=== PATIENT | male | born 1995 | race American Indian/Alaskan Native ===

== ENCOUNTER 2021-11-20 10:51 | Emergency (ER) | payer SELFPAY ==
[2021-11-20 11:09] VITALS: BP 150/90
[2021-11-20] MEDS ORDERED: oxyCODONE /ACETAMINOPHEN 5-325MG TAB PO ONE (12:09)
[2021-11-20 13:51] LABS: BUN/Creatinine Ratio 10; Blood Urea Nitrogen 8 mg/dL (9-20); Calcium 9.3 mg/dL (8.4-10.2); Hemolysis Index 80
--- NOTE | 2021-11-20 13:54 | Emergency Department Report ---
ED Extremity Problem HPI - General Chief complaint: Extremity Injury, Lower Stated complaint: LT LEG PAIN Time Seen by Provider: 11/20/21 11:50 Source: patient, EMS Mode of arrival: Stretcher Limitations: No Limitations - History of Present Illness Initial comments: 25-year-old male status post left leg AKA after a traumatic injury on October 28 presents to the hospital with complaining of pain at area of the JUAN DIEGO drain. Patient states he has had at least 5 operations since initial injury earlier this month. He initially had a BKA performed but developed osteomyelitis requiring an AKA. Patient has had several JUAN DIEGO drains placed with last surgery November 08. Patient was also discharged from [facility] at that time. Patient is not currently on antibiotics and denies fever. Patient feels like there is some pulling of the stitch at the area of the JUAN DIEGO drain and he has pain at the insertion site which recently developed. Pain is moderate to severe in intensity and worse with palpation. He continues to have bloody drainage in JUAN DIEGO drain without increased amount or purulent drainage. Patient was scheduled for suture removal in 2 days but this has been rescheduled for 6 days from now Severity scale (0 -10): 7 - Related Data Allergies Allergy/AdvReac Type Severity Reaction Status Date / Time No Known Allergies Allergy Verified 11/20/21 11:10 ED Review of Systems ROS: Stated complaint: LT LEG PAIN Other details as noted in HPI Comment: All other systems reviewed and negative ED Physical Exam - General Limitations: No Limitations - Other Other exam information: General: No acute distress Head: Atraumatic Eyes: normal appearance ENT: Moist mucous membranes Neck: Normal appearance, no midline tenderness Chest: Clear to auscultation bilaterally CV: Regular rate and rhythm Abdomen: Soft, normal bowel sounds, nontender, nondistended, no rebound or guarding Back: Normal inspection Extremity: Left leg AKA with sutures in place. No tenderness to stump area, wound dehiscence, or purulent drainage. Sutures in place. Lateral leg JUAN DIEGO drain noted without purulent drainage. Bloody drainage noted in JUAN DIEGO bulb. Tenderness along the entry track of the JUAN DIEGO drain. Neuro: Alert O x 3, no facial asymmetry, speech clear, no gross motor sensory deficit Psych: Appropriate behavior Skin: No rash ED Course Vital Signs 11/20/21 11:08 Temperature 98 F Pulse Rate 92 H Respiratory 18 Rate Blood Pressure 150/90 [Left] O2 Sat by Pulse 100 Oximetry Critical care attestation.: If time is entered above; I have spent that time in minutes in the direct care of this critically ill patient, excluding procedure time. ED Disposition Clinical Impression: Post-op pain, S/P AKA (above knee amputation) unilateral Disposition: 07 LEFT AGAINST MEDICAL ADVICE Is pt being admited?: No Does the pt Need Aspirin: No Condition: Stable Instructions: Stump and Prosthesis Care Additional Instructions: Continue take your current medication as prescribed. You have signed out AGAINST MEDICAL ADVICE (since your ER evaluation has not been completed). [facility] for further evaluation of your recent amputation which was performed at [facility] Referrals: michael gillespie [Other] - [facility] (go directly to [facility] for evaulation) Forms: AMA Form Time of Disposition: 13:53
== END 2021-11-20 14:18 | disposition left against medical advice (07) ==
LOC: ED 10:51
DX: G89.18 Other acute postprocedural pain (principal); Z89.612 Acquired absence of left leg above knee; Z79.899 Other long term (current) drug therapy
CPT/HCPCS: 36415; 80048; 99283